=== PATIENT | female | born 2000 | race Caucasian/White ===

== ENCOUNTER → 2022-03-08 13:12 | Outpatient (BNVA) | payer OTHER, MEDICAID, SELFPAY | PROVIDERS: Visit Provider Specialist | DX: S83.005A Unspecified dislocation of left patella, initial encounter (principal); W18.49XA Other slipping, tripping and stumbling without falling, initial encounter; M25.562 Pain in left knee | CPT/HCPCS: 73560; 73565; 99203 ==

== ENCOUNTER 2025-09-25 23:07 | Emergency (ER) | payer MEDICAID, SELFPAY ==
--- OUTSIDE RECORDS SUMMARY | 2025-09-25 13:50 | XMS_ITS | Encounter Summary ---
Author Organization [facility] Address [address] [place] [address] Phone Care Team Providers Care Tools Administrator Name Role Phone Dc Oscar Primary Care Provider [phone] Reason for Referral * Imaging (Routine) - Pending Review Specialty Diagnoses / Procedures Referred By Willie dowd Referred To Contact Diagnoses S/P medial patellofemoral ligament reconstruction Procedures MR knee left wo IV contrast William Posada MD [address] [place] [address] Phone: tel: fax: [address] [address] Phone: tel: fax: Referral ID Status Reason Start Date Expiration Date V isits Requested Visits Authorized [id number] Pending Review 09/25/2025 09/25/2026 1 1 RY WORKER CONVEYOR LINE * Imaging (Routine) - Authorized Specialty Diagnoses / Procedures Referred By Willie dowd Referred To Contact Diagnoses Left knee pain, unspecified chronicity Procedures XR knee 3 views left William Posada MD [address] [place] [address] Phone: tel: fax: [place] [address] Phone: tel: fax: Referral ID Status Reason Start Date Expiration Date V isits Requested Visits Authorized [id number] Authorized 09/19/2025 09/19/2026 1 1 RY WORKER CONVEYOR LINE Reason for Visit * Reason Comments Follow-up Encounter Details Date Type Department Care Team (Late st Contact Info) Description 09/25/2025 1:50 PM BAKERY WORKER CONVEYOR LINE Office Visit [facility] [address] [place] [address] William Posada MD [address] [place] [address] S/P medial patellofemoral ligament reconstruction (Primary Dx); Chronic pain of left knee Social History Tobacco Use Types Packs/Day Years Used Date Smoking Tobacco: Never Smokeless Tobacco: Never Alcohol Use Standard Drinks/Week Comments Not Currently 0 (1 standard drink = 0.6 oz pur e alcohol) [facility] Utilities Answer Date Recorded In the past 12 months has [employer], gas, oil, or water [employer] threatened to shut off services in your home? No 03/10/2024 Humiliation, Afraid, Rape, and Kick questionnair e Answer Date Recorded Within the last year, have y ou been afraid of your partner or ex-partner? No 03/10/2024 Within the last year, have y ou been humiliated or emotionally abused in other ways by your partner or ex-partner? No Within the last year, have y ou been kicked, hit, slapped, or otherwise physically hurt by your partner or ex-partner? No 03/10/2024 Within the last year, have y ou been raped or forced to have any kind of sexual activity by your partner or ex-partner? No 03/10/2024 AUDIT-C Answer Date Recorded Q1: How often do you have a drink containing alc ohol? Monthly or less 04/09/2024 Q2: How many drinks containi ng alcohol do you have on a typical day when you are drinking? 1 or 2 04/09/2024 Q3: How often do you have si x or more drinks on one occasion? Never 04/09/2024 Overall Financial Resource Strain (CARDIA) Answe r Date Recorded How hard is it for you to pa y for the very basics like food, housing, medical care, and heating? Not hard at all 03/10/2024 PHQ-2 Answer Date Recorded Patient Health Questionnaire-2 Score 6 04/09/2024 Hunger Vital Sign Answer Date Recorded Within the past 12 months, y ou worried that your food would run out before you got the money to buy more. Never true 03/10/20 24 Within the past 12 months, t he food you bought just didn't last and you didn't have money to get more. Never true 03/10/2024 PRAPARE - Transportation Answer Date Re corded In the past 12 months, has l ack of transportation kept you from medical appointments or from getting medications? No 02/2024 In the past 12 months, has l ack of transportation kept you from meetings, work, or from getting things needed for daily living? No 03/10/2024 Housing Stability Vital Sign Answer Lopez e Recorded In the last 12 months, was t here a time when you were not able to pay the mortgage or rent on time? No 03/10/2024 In the last 12 months, how many places have you lived? 1 03/10/2024 In the last 12 months, was t here a time when you did not have a steady place to sleep or slept in a fci (including now)? No 03/10/2024 [facility] - Mental Health Answer Date Recorde d Little interest or pleasure in doing things Near ly every day 04/09/2024 Feeling down, depressed, or hopeless Nearly ever y day 04/09/2024 Feeling of Stress Not on file 04/09/2024 Comments No Sex and Gender Information Value Date Recorded Sex Assigned at Female 08/09/2024 10:49 PM CDT Legal Sex Female 3:25 PM CDT Gender Identity Transgender Male 08/09/2024 10:4 9 PM CDT Sexual Orientation Sanchez 08/09/2024 10 :49 PM CDT documented as of this encounter Last Filed Vital Signs Vital Sign Reading Time Taken Comments Blood Pressure 92/66 09/25/2025 1:50 PM BAKERY WORKER CONVEYOR LINE Pulse 93 09/25/2025 1:50 PM BAKERY WORKER CONVEYOR LINE Temperature - - Respiratory Rate 16 09/25/2025 1:50 PM BAKERY WORKER CONVEYOR LINE Oxygen Saturation 99% 09/25/2025 1:50 PM BAKERY WORKER CONVEYOR LINE Inhaled Oxygen Concentration - - Weight 71.2 kg (157 lb) 09/25/2025 1:50 PM BAKERY WORKER CONVEYOR LINE Height 154.9 cm (5' 1 ) 09/25/2025 1:50 PM BAKERY WORKER CONVEYOR LINE Body Mass Index 29.66 09/25/2025 1:50 PM BAKERY WORKER CONVEYOR LINE documented in this encounter Progress Notes * William Posada MD - 09/25/2025 1:50 PM CST CHIEF COMPLAINT: Chronic knee pain and patellar instability History of Present Illness The patient is a 25-year-old female with a history of patellar instability. Two years ago, she underwent medial patellofemoral ligament (MPFL) reconstruction due to recurrent patellar instability. 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 Initially, the patient experienced difficulties with postoperative physical therapy buteventually demonstrated a favorable response. Recently, she has reported episodes of patellar subluxation without complete dislocation, describing a persistent sensation of instability. PAST SURGICAL HISTORY: Medial patellofemoral ligament (MPFL) reconstruction SOCIAL HISTORY Previously worked at the local hospital, currently employed at [employer]. REVIEW OF SYSTEMS: Review of system is performed pertinent positives as documented in history of present illness. 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, left knee, initial encounter surgery scheduled 10/11/23 Kajal Anxiety panic attack Autism spectrum disorder Claustrophobia o2 mask are okay to use Depression Disease of thyroid gland hx of hyperthyroidism, partial thyroidectomy 2019 Hypermobility syndrome Left knee pain currently using knee immobilizer, cane and wheelchair Mitral valve prolapse Patellar instability of left knee surgery scheduled 10/11/23 Kajal PTSD (post-traumatic stress disorder) non-hositl triggers MEDICATIONS: Current Outpatient Medications on File Prior to Visit Medication Sig Dispense Refill albuterol (Proventil;Ventolin) 90 mcg/actuation inhaler Inhale 2 puffs every 6 (six) hours if needed for wheezing. hydrOXYzine HCL (Atarax) 25 mg tablet Take 25 mg by mouth every 8 (eight) hours if needed (panic attack). Takes for panic attack LORazepam (Ativan) 0.5 mg tablet Take 0.5 mg by mouth 1 (one) time each day if needed for anxiety. levocetirizine (Xyzal) 5 mg tablet Take 5 mg by mouth 1 (one) time each day. (Patient not taking: Reported on 09/25/2025) mirtazapine (Remeron) 15 mg tablet Take 15 mg by mouth 1 (one) time each day. (Patient not taking: Reported on 09/25/2025) sertraline (Zoloft) 25 mg tablet Take 25 mg by mouth 1 (one) time each day. (Patient not taking: Reported on 09/25/2025) sertraline (Zoloft) 50 mg tablet Take 50 mg by mouth 1 (one) time each day. (Patient not taking: Reported on 09/25/2025) No current facility-administered medications on file prior to visit. PHYSICAL EXAM: Left knee: Postsurgical scars are stable. There is no effusion to the knee. Range of motion of the knee from 0 to 120 degrees with no pain. Lateral patellar apprehension. Mild tenderness of left medial patella. Motor and sensory is otherwise grossly intact. IMAGING: I reviewed the radiographs findings of the patient's knee. The radiographic images are also viewed and independently interpreted by me. There are no fractures or dislocation. Joint spaces preserved. Alignment is normal. There is a small calcific ossicle to the medial patellar facet. Assessment & Plan This is a 25-year-old female who presents for evaluation of her knee due to a sense of patella subluxation/sliding. Her history and clinical exam is concerning for concern for recurrent patellar stability. X-ray shows small bony fragment at medial patella facet, possibly indicating disrupted MPFL repair. Recommendation: - Ordered MRI to evaluate MPFL repair and patellar stability - Discussed potential need for further surgical intervention based on MRI findings. Patient likely the patient may need referral to a tertiary institution versus go ahead and continue treatment once she moves to [place]. - Advised to avoid activities exacerbating symptoms - No brace per patient preference Follow-up - In about a month after MRI Records of evaluation and treatment provided to the patient prior to this visit for the condition were reviewed during this visit. Diagnostic tests were also reviewed, viewed where possible, and independently interpreted by by me. Please excuse any grammatical errors that may be as a result of dictation software which has been utilized for this note. RY WORKER CONVEYOR LINE documented in this encounter Plan of Treatment Upcoming Encounters Date Type Department Care Team (Late st Contact Info) Description 10/23/2025 1:50 PM BAKERY WORKER CONVEYOR LINE Office Visit [facility] [address] [place] [address] William Posada MD [address] [id number] Scheduled Orders Name Type Priority Associated Diagnoses Orde r Schedule XR knee 3 views left Imaging Routine Chronic pain of left knee Expected: 09/19/2025, Expires: 09/19/2026 MR knee left wo IV contrast Imaging Routine S/P medial patellofemoral ligament reconstruction Expected: 09/25/2025 (Approximate), Expires: 09/25/2026 documented as of this encounter Visit Diagnoses Diagnosis S/P medial patellofemoral ligament reconstruction- Primary Chronic pain of left knee documented in this encounter Care Teams Tools Administrator Relationship Specialty Start Date End Date Dc Oscar [facility] [address] [place] [address] PCP - General 08/19/23 documented as of this encounter
[2025-09-25 23:08] VITALS: BP 116/80; PULSE 87; RESP 16; TEMP 36.8; O2SAT 100; BMI 29.4
--- NOTE | 2025-09-25 23:14 | ECG_ITS ---
[facility] Date: 2025-09-25 Pat Name: Stephan Wilde Department: Room: Gender: Female Surveying Or Spatial Science Technician: : 2000 Requested By: Joseph De La Cruz Order Number: [id number] Edmond MD: Karen Melgar M.D. Measurements Intervals [place] Rate: 80 P: 40 HI: 202 QRS: 32 QRSD: 115 T: 46 QT: 362 QTc: 420 Interpretive Statements SINUS RHYTHM MODERATE INTRAVENTRICULAR CONDUCTION DELAY [110+ ms QRS DURATION] No previous ECG available for comparison Electronically Signed On 09-25-2025 23:56:49 LAP CUTTER TRUER OPERATOR by Karen Melgar M.D. [email or web address] [id number]
--- OUTSIDE RECORDS SUMMARY | 2025-09-25 23:15 | XMS_ITS | Clinical Summary ---
Author Organization [facility] Main [facility] s Address [address] [place] [address] Care Team Providers Care Jazz Singer Name Role Phone EsterDc alfaro Primary Care Provider [phone] Allergies Active Allergy Reactions Criticality Noted Date Comments Adhesive Tape-Silicones Rash Medium 04/09/2024 Medications hydrOXYzine (ATARAX) 25 mg tablet TAKE 1 TO 4 TABLETS BY MOUTH EVERY 8 HOURS NEEDED FOR ACUTE ANXIETY AND PANIC Active LORazepam (ATIVAN) 0.5 mg tablet Take 1 tablet (0.5 mg total) by mouth daily as needed 02/28/2024 Active sertraline (ZOLOFT) 25 mg tablet Take 1 tablet (25 mg total) by mouth daily Active loratadine (CLARITIN) 5 mg chewable tablet Take 1 tablet (5 mg total) by mouth daily Active Active Problems Problem Noted Date Diagnosed Date Recurrent syncope 07/11/2024 Syncope and collapse 05/25/2024 Surgical History Surgery Date Site/Laterality Comments THYROIDECTOMY, PARTIAL Medical History Medical History Date Comments Anxiety Depression PTSD (post-traumatic stress disorder) Social History Tobacco Use Types Packs/Day Years Used Date Smoking Tobacco: Never Smokeless Tobacco: Never Tobacco Cessation:Counseling Given: Not Answered AUDIT-C Answer Date Recorded Q1: How often do you have a drink containing alc ohol? Monthly or less 08/02/2024 Q2: How many drinks containi ng alcohol do you have on a typical day when you are drinking? 1 or 2 08/02/2024 Q3: How often do you have si x or more drinks on one occasion? Never 08/02/2024 Personal Safety Answer Date Recorded Have you ever been in or are you currently in a harmful physical or emotional relationship or is someone making you feel afraid or unsafe? Denies 08/02/2024 Comments No Sex and Gender Information Value Date Recorded Sex Assigned at Not on file Legal Sex Female 1:17 PM SUPERINTENDENT [employer]PER[employer] Gender Identity Not on file Sexual Orientation Not on file Last Filed Vital Signs Vital Sign Reading Time Taken Comments Blood Pressure 118/81 08/02/2024 6:20 PM CDT Pulse 105 08/02/2024 6:20 PM CDT Temperature 36.2 C (97.2 F) 02/09/2023 4:23 PM CDT Respiratory Rate 20 08/02/2024 6:20 PM CDT Oxygen Saturation 98% 08/02/2024 6:20 PM CDT Inhaled Oxygen Concentration - - Weight 68 kg (150 lb) 05/25/2024 3:26 PM CDT Height 157.5 cm (5' 2 ) 05/25/2024 3:26 PM CDT Body Mass Index 27.44 05/25/2024 3:26 PM CDT Plan of Treatment Health Maintenance Due Date Last Done Comments Cervical Cancer Screening 2002 Depression Screening 2002 Hepatitis C Screening 2002 DTaP/Tdap/Td Vaccine (1 - Tdap) 2013 Varicella Vaccines (1 of 2 - 13+ 2-dose series) 2015 HPV Vaccines (1 - 3-dose series) 2017 Meningococcal B Vaccine (1 o f 2 - Standard) 2018 Hepatitis B Screening 2020 Regular Well Visit/Exam 18-64 2020 Covid-19 Vaccine (4 - 2024-2 6 season) 2025 06/01/2022, 01/18/2022, 11/26/2021 Influenza Vaccine (#1) 2025 2, 11/24/2021 Pneumococcal vaccine <65 Aged Out No longer eligible based on patient's age to complete this topic Insurance [facility] Care Teams Jazz Singer Relationship Specialty Start Date End Date Dc Oscar DO [address] [place] [id number] PCP - General Family Medicine 06/23/24
--- OUTSIDE RECORDS SUMMARY | 2025-09-25 23:15 | XMS_ITS | Encounter Summary ---
Author Organization [facility] Address [address] [address] Phone Care Team Providers Care Substance Addiction Coordinator Name Role Phone Dc Oscar Primary Care Provider [phone] Encounter Details Date Type Department Care Team (Late st Contact Info) Description 11/01/2023 Orders Only [facility] [address] [place] [id number] Beverly Heath LPN [address] [address] S/P medial patellofemoral ligament reconstruction (Primary Dx); Chronic pain of left knee Social History Tobacco Use Types Packs/Day Years Used Date Smoking Tobacco: Never Smokeless Tobacco: Never Alcohol Use Standard Drinks/Week Comments Never 0 (1 standard drink = 0.6 oz pur e alcohol) PHQ-2 Answer Date Recorded Patient Health Questionnaire-2 Score 0 09/21/2023 Comments No Sex and Gender Information Value Date Recorded Sex Assigned at Female 08/09/2024 10:49 PM CDT Legal Sex Female 3:25 PM CDT Gender Identity Transgender Male 08/09/2024 10:4 9 PM CDT Sexual Orientation Sanchez 08/09/2024 10 :49 PM CDT documented as of this encounter Plan of Treatment Upcoming Encounters Date Type Department Care Team (Late st Contact Info) Description 10/23/2025 1:50 PM PREDATORY GAME HUNTER Office Visit [facility] [address] [place] [phone] William Posada MD [address] [address] documented as of this encounter Visit Diagnoses Diagnosis S/P medial patellofemoral ligament reconstruction- Primary Chronic pain of left knee documented in this encounter Care Teams Substance Addiction Coordinator Relationship Specialty Start Date End Date Dc Oscar [address] [address] PCP - General 08/19/23 documented as of this encounter
--- OUTSIDE RECORDS SUMMARY | 2025-09-25 23:16 | XMS_ITS | Encounter Summary ---
Author Organization [facility] Address [address] [place] [address] Phone Care Team Providers Care Fairground Operator Name Role Phone Dc Oscar Primary Care Provider [phone] Reason for Visit * Reason Onset Date Comments SY- Xrays 09/19/2025 Encounter Details Date Type Department Care Team (Late st Contact Info) Description 09/19/2025 Telephone [facility] [address] [place] [address] William Posada MD [address] [address] SY- Xrays Social History Tobacco Use Types Packs/Day Years Used Date Smoking Tobacco: Never Smokeless Tobacco: Never Alcohol Use Standard Drinks/Week Comments Not Currently 0 (1 standard drink = 0.6 oz pur e alcohol) [facility] Utilities Answer Date Recorded In the past 12 months has [employer], gas, oil, or water [employer] threatened to shut off services in your [...] place to sleep or slept in a group home (including now)? No 03/10/2024 [facility] - Mental Health Answer Date Recorde d [...] PM CDT documented as of this encounter Miscellaneous Notes * Telephone Encounter - Latricia Tinocon - 09/24/2025 1:15 PM CST Called and left voicemail BOARD CUTTER * Telephone Encounter - Latricia Tinocon - 09/23/2025 3:56 PM CST Called someone answered, I started to state my name and what office I'm from, then they hung up. Could not leave voicemail BOARD CUTTER * Telephone Encounter - Latricia Shawn - 09/19/2025 12:58 PM CST Called and left voicemail to have patient to get xrays before 09/25 appointment. BOARD CUTTER documented in this encounter Plan of Treatment Upcoming Encounters Date Type Department Care Team (Late st Contact Info) Description 10/23/2025 1:50 PM CARDBOARD CUTTER Office Visit [facility] [address] [place] [address] William Posada MD [address] [place] [address] documented as of this encounter Visit Diagnoses Not on filedocumented in this encounter Care Teams Fairground Operator Relationship Specialty Start Date End Date Dc Oscar [facility] [address] [facility] [place] [address] PCP - General 08/19/23 documented as of this encounter
--- OUTSIDE RECORDS SUMMARY | 2025-09-25 23:16 | XMS_ITS | Clinical Summary ---
Author Organization [facility] 1 [address] [facility] Address [address] [place] [address] Phone Care Team Providers Care Picking Machine Operator Name Role Phone Unavailable Primary Care Provider Unavailabl e Allergies No known active allergies Medications hydrOXYzine HCL (ATARAX) 10 mg tablet Take 10 mg by mouth 3 times daily as needed for Itching. Active levocetirizine (XYZAL) 5 mg tablet Take 5 mg by mouth daily. 4 Active LORazepam (ATIVAN) 0.5 mg tablet Take 0.5 mg by mouth. 4 Active mirtazapine (REMERON) 15 mg tablet Take 15 mg by mouth daily. 4 Active sertraline (ZOLOFT) 25 mg tablet Take 25 mg by mouth daily. 4 Active albuterol sulfate HFA 90 mcg/actuation aerosol inhaler Take 2 Puffs by inhalation every 6 hours as needed for Shortness of Breath. Active Active Problems Problem Noted Date Diagnosed Date Suicide ideation 11/13/2024 History of mitral valve prolapse 03/09/2024 Chest pain 03/09/2024 Encounters Date Type Department Care Team Description 09/24/2025 External Device Data STL ABSTRACTION Provider, Abstract 09/10/2025 External Device Data STL ABSTRACTION Provider, Abstract 09/10/2025 External Device Data STL ABSTRACTION Provider, Abstract 08/28/2025 External Device Data STL ABSTRACTION Provider, Abstract 07/23/2025 External Device Data STL ABSTRACTION Provider, Abstract 07/09/2025 External Device Data STL ABSTRACTION Provider, Abstract 06/25/2025 External Device Data STL ABSTRACTION Provider, Abstract from Last 3 Months Social History Tobacco Use Types Packs/Day Years Used Date Smoking Tobacco: Never Smokeless Tobacco: Never Tobacco Cessation:Counseling Given: Not Answered Alcohol Use Standard Drinks/Week Comments Never 0 (1 standard drink = 0.6 oz pur e alcohol) Feeling Safe Answer Date Recorded Are you in a relationship wi th someone who hurts you emotionally and/or physically? No 11/13/2024 Comments No Sex and Gender Information Value Date Recorded Sex Assigned at Not on file Legal Sex Female 1:49 PM PRESS CLIPPINGS CUTTER AND PASTER Gender Identity Not on file Sexual Orientation Not on file Last Filed Vital Signs Vital Sign Reading Time Taken Comments Blood Pressure 121/78 11/13/2024 1:00 PM PRESS CLIPPINGS CUTTER AND PASTER Pulse 87 03/09/2024 6:30 PM CDT Temperature 36.3 C (97.3 F) 11/13/2024 6:22 AM PRESS CLIPPINGS CUTTER AND PASTER Respiratory Rate 16 11/13/2024 1:00 PM PRESS CLIPPINGS CUTTER AND PASTER Oxygen Saturation 100% 11/13/2024 1:00 PM PRESS CLIPPINGS CUTTER AND PASTER Inhaled Oxygen Concentration - - Weight 71.4 kg (157 lb 6.4 oz) 11/13/2024 12:07 AM PRESS CLIPPINGS CUTTER AND PASTER Height 154.9 cm (5' 1 ) 11/13/2024 12:07 AM PRESS CLIPPINGS CUTTER AND PASTER Body Mass Index 29.74 11/13/2024 12:07 AM PRESS CLIPPINGS CUTTER AND PASTER Plan of Treatment Upcoming Encounters Date Type Department Care Team (Late st Contact Info) Description 10/09/2025 3:00 PM PRESS CLIPPINGS CUTTER AND PASTER Office Visit [facility] [address] [phone] Shanique Brown FNP [address] [place] [phone] Health Maintenance Due Date Last Done Comments CHLAMYDIA SCREENING (ANNUAL) 11-24 YEARS 2013 HPV VACCINES (1 - 3-dose series) 2017 DTAP/TDAP/TD VACCINES (1 - Tdap) 2021 HEPATITIS B VACCINES (1 of 3 - 19+ 3-dose series) 2021 CERVICAL CANCER SCREENING 2023 HPV/Cotest (21-29) 2023 PAP SMEAR 2023 INFLUENZA VACCINE (#1) 2025 COVID-19 Vaccine (2024-2 6 season) 2025 06/01/2022, 01/18/2022, 11/26/2021 Insurance [facility] [id number] [employer]
--- OUTSIDE RECORDS SUMMARY | 2025-09-25 23:16 | XMS_ITS | Encounter Summary ---
Author Organization [facility] Address [address] [place] [address] Care Team Providers Care Receiving Team Member Name Role Phone Unavailable Primary Care Provider Unavailabl e Encounter Details Date Type Department Care Team (Late st Contact Info) Description 09/24/2025 External Device Data STL ABSTRACTION Provider, Abstract NO ADDRESS ON FILE Social History Tobacco Use Types Packs/Day Years [...] on file Legal Sex Female 1:49 PM COMMUNICATIONS ASSISTANT Gender Identity Not on file Sexual Orientation Not on file documented as of this encounter Plan of Treatment Upcoming Encounters Date Type Department Care Team (Late st Contact Info) Description 10/09/2025 3:00 PM COMMUNICATIONS ASSISTANT Office Visit [facility] [address] [place] [address] Shanique Brown FNP [address] [place] [address] [address] [place] [phone] documented as of this encounter Visit Diagnoses Not on filedocumented in this encounter
--- OUTSIDE RECORDS SUMMARY | 2025-09-25 23:16 | XMS_ITS | Clinical Summary ---
Author Organization [facility] Address [address] [place] [address] Phone Care Team Providers Care Heart Doctor Name Role Phone Dc Oscar Primary Care Provider [phone] Allergies Active Allergy Reactions Criticality Noted Date Comments Adhesive Tape-Silicones Rash Medium 04/09/2024 Medications hydrOXYzine HCL (Atarax) 25 mg tablet Take 25 mg by mouth every 8 (eight) hours if needed (panic attack). Takes for panic attack 07/27/2023 Active LORazepam (Ativan) 0.5 mg tablet Take 0.5 mg by mouth 1 (one) time each day if needed for anxiety. 02/28/2024 Active sertraline (Zoloft) 25 mg tablet Take 25 mg by mouth 1 (one) time each day. 08/02/2024 Active levocetirizine (Xyzal) 5 mg tablet Take 5 mg by mouth 1 (one) time each day. 07/11/2024 Active mirtazapine (Remeron) 15 mg tablet Take 15 mg by mouth 1 (one) time each day. 07/26/2024 Active sertraline (Zoloft) 50 mg tablet Take 50 mg by mouth 1 (one) time each day. 07/26/2024 Active albuterol (Proventil;Fabiola luis) 90 mcg/actuation inhaler Inhale 2 puffs every 6 (six) hours if needed for wheezing. Active Active Problems Problem Noted Date Diagnosed Date Palpitations 06/10/2024 Dizziness, nonspecific 06/10/2024 Benign joint hypermobility 06/10/2024 Family history of aneurysm 06/10/2024 Tachycardia 06/10/2024 Syncope and collapse 04/09/2024 Tilt table evaluation 04/09/2024 Chest pain 03/09/2024 Anterior subluxation of prox imal end of tibia, left knee, initial encounter 09/22/2023 Patellar instability of left knee 09/22/2023 Left knee pain 09/22/2023 Encounters Date Type Department Care Team Description 09/25/2025 1:50 PM ASSEMBLY CLEANER Office Visit [facility] [address] [place] [id number] William Posada MD S/P medial patellofemoral ligament reconstruction (Primary Dx); Chronic pain of left knee 09/19/2025 Telephone ORTHOPEDICS CLINIC MEDICAL OFFICE BUILDING [address] [place] [phone] William Posada MD SY- Xrays from Last 3 Months Family History Medical History Relation Comments Diabetes Maternal Grandmother Cancer Neg Hx Hypertension Neg Hx Stroke Neg Hx Relation Status Comments Maternal Grandmother Mother Social History Tobacco Use Types Packs/Day Years Used Date Smoking Tobacco: Never Smokeless Tobacco: Never Tobacco Cessation:Counseling Given: Not Answered Alcohol Use Standard Drinks/Week Comments Not Currently 0 (1 standard drink = 0.6 oz pur e alcohol) [facility] Utilities Answer Date Recorded In the past 12 months has e [employer], gas, oil, or water [employer] threatened to shut off services in your [...] place to sleep or slept in a halfway (including now)? No 03/10/2024 [facility] - Mental Health Answer Date Recorde [...] Orientation Sanchez 08/09/2024 10 :49 PM CDT Last Filed Vital Signs Vital Sign Reading Time Taken Comments Blood Pressure 92/66 09/25/2025 1:50 PM ASSEMBLY CLEANER Pulse 93 09/25/2025 1:50 PM ASSEMBLY CLEANER Temperature 37 C (98.6 F) 08/10/2024 12:35 AM CDT Respiratory Rate 16 09/25/2025 1:50 PM ASSEMBLY CLEANER Oxygen Saturation 99% 09/25/2025 1:50 PM ASSEMBLY CLEANER Inhaled Oxygen Concentration - - Weight 71.2 kg (157 lb) 09/25/2025 1:50 PM ASSEMBLY CLEANER Height 154.9 cm (5' 1 ) 09/25/2025 1:50 PM ASSEMBLY CLEANER Body Mass Index 29.66 09/25/2025 1:50 PM ASSEMBLY CLEANER Plan of Treatment Upcoming Encounters Date Type Department Care Team (Late st Contact Info) Description 10/23/2025 1:50 PM ASSEMBLY CLEANER Office Visit [facility] [place], [place] [id number] William Posada MD [address] [address] Health Maintenance Due Date Last Done Comments MMR Vaccines (1 of 1 - Standard series) 2003 DTaP,Tdap,and Td Vaccines (1 - Tdap) 2009 Varicella Vaccines (1 of 2 - 13+ 2-dose series) 2015 HPV Vaccines (1 - 3-dose series) 2017 Meningococcal B Vaccine (1 o f 2 - Standard) 2018 Depression Screening 2020 Social Drivers of Health (SDoH) 2020 Hepatitis B Vaccines (1 of 3 - 19+ 3-dose series) 2021 Pap Smear 2023 COVID-19 Vaccine (2 - 2024-2 6 season) 2025 06/11/2024 Influenza Vaccine (#1) 2025 2, 11/24/2021 Lipid Panel 03/09/2029 03/09/2024 Zoster Vaccines (1 of 2) 2052 RSV Vaccines (1 - 1-dose 75+ series) 2077 HIB Vaccines Aged Out No longer eligi ble based on patient's age to complete this topic Hepatitis A Vaccines Aged Out No long er eligible based on patient's age to complete this topic IPV Vaccines Aged Out No longer eligi ble based on patient's age to complete this topic Meningococcal Vaccine Aged Out No suzie rik eligible based on patient's age to complete this topic Pneumococcal Vaccines Aged Out No suzie rik eligible based on patient's age to complete this topic Rotavirus Vaccines Aged Out No longer eligible based on patient's age to complete this topic Medical Devices Implanted Type Area Produce Wrapper Device Identifier Shelf Expiration Date Model / Serial / Lot Dbl Strand Semi-T - [id number] Implanted:Qty : 1 on 10/11/2023 by William Posada MD at [facility] Consignment Products Implant Left: Knee STRE [id number] 05/14/2028 [id number] / / [id number] Description:PURCHASED ON PO# [id number] Yuma Qfix 1.8 Mini Suture - [id number] Implanted:Qty : 1 on 10/11/2023 by William Posada MD at [facility] Implant Left: Knee SMINE 06/17/2026 [id number] / / [id number] Description:PURCHASED ON PO# [id number] [employer]uma Qfix 1.8 Mini Suture - [id number] Implanted:Qty : 1 on 10/11/2023 by William Posada MD at [facility] Implant Left: Knee SMINE 12/10/2025 [id number] / / [id number] Description:PURCHASED ON PO# [id number] Screw Biosure [place] 7mm X 20mm - [id number] Implanted:Qty : 1 on 10/11/2023 by William Posada MD at [facility] Implant Left: Knee SMINO 09/21/2024 [id number] / / [id number] Description:PURCHASED ON PO# [id number] Procedures Procedure Name Priority Date/Time Associated Diagnosis Comments LIPID PANEL Pending Discharge 03/09/2024 9:2 4 PM CDT from Last 3 Months or Most Recently Relevant to Health Maintenance Results * (ABNORMAL) Lipid Panel (03/09/2024 9:24 PM CDT) Cholesterol, Total 191 0 - 200 mg/dL LAB CHEMISTRY METHOD 03/10/2024 5:57 AM CDT [facility] Comment: NCEP guidelines: Adults (older than 19 yrs) Desirable: Less than 200 mg/dL Borderline-High: 200 - 239 mg/dL High: Greater than or equal to 240 mg/dL Triglycerides 154(H) 0 - 150 mg/dL LAB CHEMISTRY METHOD 03/10/2024 5:57 AM CDT [facility] Comment: NCEP guidelines: Normal: 10 - 150 mg/dL Borderline-High: 150 - 199 mg/dL High: 200 - 499 mg/dL Very High: Greater than 500 mg/dL High-Density Lipoprotein 42 40 - 60 mg/dL LAB CHEMISTRY METHOD 03/10/2024 5:57 AM CDT [facility] Comment: NCEP guidelines: Low: Less than 40 mg/dL Normal: 40 - 60 mg/dL High: Greater than 60 mg/dL LDL 118 0 - 130 mg/dL LAB CHEMISTRY METHOD 03/10/2024 5:57 AM CDT [facility] Blood Venous blood specimen / Unknown Venipuncture / Unknown 03/09/2024 9:24 PM CDT 03/09/2024 9:52 PM CDT Naila Cummins MD LAB BLOOD ORDERABLES Final Result Performing Organization Address [facility]/State/[facility] Co de Phone Number [facility] [address] [address] from Last 3 Months or Most Recently Relevant to Health Maintenance Insurance [facility] MEDICAID Advance Directives For more information, please contact: [phone] (7:30 AM - 5PM [facility]/[place], 7 days a week) * Full Code (Latest Code Status on File) Date Activated Date Inactivated Comments 03/09/2024 8:54 PM 03/10/2024 6:36 PM * Full Code Date Activated Date Inactivated Comments 10/11/2023 10:05 AM 10/11/2023 6:48 PM Care Teams Heart Doctor Relationship Specialty Start Date End Date Dc Oscar [facility], [address] [place], [place] [id number] PCP - General 08/19/23
--- OUTSIDE RECORDS SUMMARY | 2025-09-25 23:17 | XMS_ITS | Encounter Summary ---
Author Organization [facility] Address [address] [place] [address] Phone Care Team Providers Care Rotary Envelope Machine Operator Name Role Phone Dc Oscar Primary Care Provider [phone] Reason for Visit * Reason Comments Med Change Request Encounter Details Date Type Department Care Team (Late st Contact Info) Description 03/12/2024 Refill UROLOGY CLINIC MEDICAL OFFICE BUILDING [address] [phone] Patrick Stewart MD [address] [phone] Urge incontinence Social History Tobacco Use Types Packs/Day Years Used Date Smoking Tobacco: Never Smokeless Tobacco: Never Alcohol Use Standard Drinks/Week Comments Never 0 (1 standard drink = 0.6 oz pur e alcohol) [facility] Utilities Answer Date Recorded In the past 12 months has [facility] [employer], oil, or water [employer] threatened to shut off services in your [...] often do you have a drink containing alcohol? Never 03/12/2024 Q2: How many drinks containi ng alcohol do you have on a typical day when you are drinking? Patient does not drink Q3: How often do you have si x or more drinks on one occasion? Never 03/12/2024 Overall Financial Resource Strain (CARDIA) Answe r Date Recorded How hard is it for you to pa y for the very basics like food, housing, medical care, and heating? Not hard at all 03/10/2024 PHQ-2 Answer Date Recorded Patient Health Questionnaire-2 Score 0 03/12/2024 Hunger Vital Sign Answer Date Recorded Within [...] place to sleep or slept in a retirement (including now)? No 03/10/2024 Comments No Sex and Gender Information Value Date Recorded Sex Assigned at Female 08/09/2024 10:49 PM CDT Legal Sex Female 3:25 PM CDT Gender Identity Transgender Male 08/09/2024 10:4 9 PM CDT Sexual Orientation Sanchez 08/09/2024 10 :49 PM CDT documented as of this encounter Functional Status * AUDIT-C Score Answer Date of Assessment Author 0 03/12/2024 2:23 PM CDT Galo Moreno LPN-IV * Question Answer Date of Assessment Author Q1: How often do you have a drink containing alcohol? Never 03/12/2024 2:23 PM CDT Evy Moreno LPN-IV Q2: How many drinks containing alcohol do you have on a typical day when you are drinking? Patient does not drink 03/12/2024 2:23 PM CDT Evy Moreno LPN-IV Q3: How often do you have six or more drinks on one occasion? Never 03/12/2024 2:23 PM CDT Evy Moreno LPN-IV * Over the past 2 weeks, how often have you been bothered by any of the following problems? Question Answer Date of Assessment Author Little interest or pleasure in doing things Not at all 03/12/2024 2:19 PM CDT Evy Moreno LPN-IV Feeling down, depressed, or hopeless Not at all 03/12/2024 2:19 PM CDT Evy Moreno LPN-IV Patient Health Questionnaire-2 Score 0 03/12/2024 2:19 PM CDT Valerio Moreno LPN-IV documented as of this encounter Plan of Treatment Upcoming Encounters Date Type Department Care Team (Late st Contact Info) Description 10/23/2025 1:50 PM CLINICAL BUSINESS ANALYST Office [facility] [address] [place] [address] William Posada MD [address] [address] documented as of this encounter Visit Diagnoses Diagnosis Urge incontinence documented in this encounter Care Teams Rotary Envelope Machine Operator Relationship Specialty Start Date End Date Dc Oscar [facility] [address] [facility] [place] [address] PCP - General 08/19/23 documented as of this encounter
--- NOTE | 2025-09-25 23:18 | XRR_ITS ---
PROCEDURE INFORMATION: Exam: XR Chest Exam date and time: 09/25/2025 11:19 PM Age: 25 years old Clinical indication: Pain; Angina pectoris; Additional info: Cp TECHNIQUE: Imaging protocol: Radiologic exam of the chest. Views: 1 view. COMPARISON: No relevant prior studies available. FINDINGS: Lungs: Unremarkable. No consolidation. Pleural spaces: Unremarkable. No pleural effusion. No pneumothorax. Heart/Mediastinum: Unremarkable. No cardiomegaly. Bones/joints: Unremarkable. XR/XR chest 1V portable [id number] IMPRESSION: No acute findings.
[2025-09-25 23:46] VITALS: BP 138/98; PULSE 91; O2SAT 98
--- NOTE | 2025-09-25 23:54 | ED_ITS ---
HPI - Chest Pain 2 General: Chief Complaint: Chest Pain Stated Complaint: Chest Pain,Got hit in the head Time Seen by Provider: 09/25/25 23:18 History of Present Illness: Patient is a 25F with a history of mitral valve prolapse and asthma presents with worsening sharp upper chest pain that first onset a week ago and has been intermittent since, seemingly worsening tonight. No radiation to her arms, jaw, back, not associated with shortness of breath, vomiting, diaphoresis, not worsened with exertion, but seems to be positional. Has had a pain similar to this many times before with negative ED evaluations and seemingly attributable to her MVP. She is on no medications for that. She denies any recent fevers, chills, diaphoresis, NVD, abdominal pain, urinary symptoms. She last had an appointment with a facility supervisor 2 months ago and is on no medications for her MVP, she states she does not know the severity of it but knowingly has not had any complications from this. 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 She has tried ibuprofen and acetaminophen for pain without relief and prefers to avoid stronger analgesics. No history of blood clots, no recent immobilization, no leg pain, not on OCPs. Related Data Home Medications ?Medication ?Instructions ?Recorded ?Confirmed hydroxyzine HCl 25 mg tablet 25 mg PO BID PRN 04/19/24 04/18/25 lorazepam 0.5 mg tablet 0.5 mg PO DAILY PRN 04/19/24 04/18/25 levocetirizine 5 mg tablet 5 mg PO DAILY 07/26/2404/07 albuterol sulfate 90 mcg/actuation 1 inh inhalation QI D 04/18/25 04/18/25 aerosol inhaler (Ventolin HFA) Previous Rx's ?Medication ?Instructions ?Recorded mirtazapine 15 mg tablet 15 mg PO DAILY #30 tabs 07/08 07/31 sertraline 50 mg tablet 50 mg PO DAILY 30 days #30 t abs 07/26/24 azithromycin 500 mg tablet See Rx Instructions PO .COM PLEX #3 09/26/25 tabs Allergies Allergy/AdvReac Type Severity Reaction Status Date / Time adhesive Allergy ALGY-Rash Verified 09/25/25 23:18 Review of Systems 2 General: Reports: 10 or more systems reviewed and unremarkable except in HPI and below Card: Reports: chest pain PFSH ED 2 PFSH: Medical History (Updated 09/26/25 @ 02:03 by Janes Lopes DO) Anxiety Psychiatric care Family History Mother Diabetes Social History (Updated 04/18/25 @ 10:04 by Alka Morejon LPN) Smoking and tobacco/nicotine status: current some day tobacco/nicotine user e- cigarettes Second hand smoke exposure: No Alcohol intake: never Substance/Drug Use: never Adopted: Yes Caregiver/support person: Yes Lives independently: No Household members: family Housing: House Marital status: Single Number of children: 0 Highest education level completed: High School Graduate service: No Current occupational status: employed 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 Normal sinus rhythm with click at left lower sternal border, no leg swelling, 2+ pulses throughout, good cap refill. Breathing comfortably on room air, saturating well, clear bilateral breath sounds, able to speak in full sentences without getting short of breath, no signs of respiratory distress. Abdomen soft, nontender, nondistended, bowel sounds intact. GCS 15. Course 2 Vital Signs: Vital signs: Vital Signs Temperature 98.3 F 09/25/25 23:08 Pulse Rate 75 09/26/25 02:07 Respiratory Rate 16 09/25/25 23:08 Blood Pressure 107/69 09/26/25 02:07 Pulse Oximetry 99 09/26/25 02:07 Oxygen Delivery Me thod Room Air 09/26/25 01:30 MDM - Chest Pain Medical Decision Making -ddx: Mitral valve prolapse related pain, ACS, dysrhythmia, URI, pneumonia, pericarditis, myocarditis, pneumothorax, costochondritis, pleurisy - Patient overall well-appearing, with history of MVP, has had a week of intermittent sharp upper diffuse chest pain with no radiation, not exertional, low cardiac risk factors, heart score of 1, has been alternating Tylenol and ibuprofen to mild relief, denies wanting any stronger medications at this time, had a last cardiology appointment 2 months ago, is on no medications for her MVP and seemingly has had no complications from this. Will start with cardiac evaluation, chest x-ray and EKG and reassess, denying needing any medication at this time. - Patient with reassuring ED evaluation, EKG normal sinus rhythm with no interval prolongation, no ST changes, initial troponin less than 4, labs with no severe electrolyte abnormality, no BENJI, no evidence of endorgan damage. Did have mild leukocytosis with a possible brewing opacity in her right lower lobe and with her history of asthma, discharged with watchful wait antibiotics with Z-Julius for if she develops worsening infectious/respiratory symptoms over the next 24 to 48 hours, patient with no episodes of chest pain in the ED, agreeable with plan of care, work note provided, discharged in stable condition with strict return precautions given. Lab Data 09/26/25 01:00 09/26/25 01:00 Radiology Impressions Chest X-Ray 09/25/25 23:18 IMPRESSION: No acute findings. Laboratory Results WBC 11.99 10^3/uL (3.29-11.43) H 09/26/25 01:00 RBC 4.88 10^6/uL (3.85-5.65) 09/26/25 01:00 Hgb 13.80 g/dL (11.27-16.99) 09/26/25 01:00 Hct 42.4 % (36-47) 09/26/25 01:00 MCV 86.9 fl (85-98) 09/26/25 01:00 MCH 28.3 pg (27-33) 09/26/25 01:00 MCHC 32.5 g/dL (30-55) 09/26/25 01:00 RDW 13.1 % (12.1-15.1) 09/26/25 01:00 Plt Count 394 10^3/cmm (157-399) 09/26/25 01:00 MPV 9.5 fL (7.4-10.4) 09/26/25 01:00 Neut % (Auto) 66.6 % 09/26/25 01:00 Lymph % (Auto) 22.9 % 09/26/25 01:00 Wallace % (Auto) 5.5 % 09/26/25 01:00 Eos % (Auto) 3.3 % 09/26/25 01:00 Baso % (Auto) 0.9 % 09/26/25 01:00 Neut # (Auto) 7.99 10^3/uL (1.8-7.7) H 09/26/25 01:00 Lymph # (Auto) 2.7 10^3/uL (0.8-4.8) 09/26/25 01:00 Wallace # (Auto) 0.7 10^3/uL (0.2-0.9) 09/26/25 01:00 Eos # (Auto) 0.4 10^3/uL (0.0-0.8) 09/26/25 01:00 Baso # (Auto) 0.1 10^3/uL (0.0-0.1) 09/26/25 01:00 Nucleated RBC % (auto) 0 % 09/26/25 01:00 Nucleated RBCs # 0.0 /100WBC 09/26/25 01:00 Sodium 140 mmol/L (136-145) 09/26/25 01:00 Potassium 4.4 mmol/L (3.5-5.1) 09/26/25 01:00 Chloride 105 mmol/L (98-107) 09/26/25 01:00 Carbon Dioxide 23 mmol/L (22-29) 09/26/25 01:00 Anion Gap 16.4 (5-19) 09/26/25 01:00 BUN 14 mg/dL (6-20) 09/26/25 01:00 Creatinine 0.7 mg/dL (0.5-0.9) 09/26/25 01:00 GFR Calculation 103.7 mL/min (90-130) 09/26/25 01:00 Glucose 179 mg/dL (65-115) H 09/26/25 01:00 Calculated Osmolality 295 mOsm/kg (285-295) 09/26/25 01:00 Calcium 9.8 mg/dL (8.5-10.5) 09/26/25 01:00 Magnesium 2.1 mg/dL (1.7-2.3) 09/26/25 01:00 Troponin T Baseline < 6 ng/L (0-10) 09/26/25 01:00 C-React Prot High Sens 0.280 mg/dL (0.0-0.3) 09/26/25 01:00 NT-Pro-B Natriuret Pep < 36 pg/mL (0-125) 09/26/25 01:00 Lipase 18 U/L (13-60) 09/26/25 01:00 TSH 1.57 uIU/mL (0.27-4.20) 09/26/25 01:00 All radiology interpretation(s) finalized by discharge Clincial Decision Support The following clinical decision support tools were used to aid in care of the patient HEART Score -> History: Slightly Suspicous, EKG: Normal, Age: Less than 45 yrs, Risk Factors: 1 or 2 Risk Factors, Troponin: Baseline Trop <16 ng/L. Resulting HEART Score: 1. Discharge Plan Discharge Patient Disposition: Home Clinical Impression: Atypical chest pain, Bronchitis Condition: Stable Prescriptions: New azithromycin 500 mg tablet See Rx Instructions .ROUTE .COMPLEX Qty: 3 0RF Rx Instructions: For 250 mg dose pack: take 500 mg today (day 1), then 250 mg for 4 days (days 2-5) No Action hydroxyzine HCl 25 mg tablet 25 mg PO BID PRN lorazepam 0.5 mg tablet 0.5 mg PO DAILY PRN levocetirizine 5 mg tablet 5 mg PO DAILY sertraline 50 mg tablet 50 mg PO DAILY 30 Days Qty: 30 3RF mirtazapine 15 mg tablet 15 mg PO DAILY Qty: 30 3RF albuterol sulfate [Ventolin HFA] 90 mcg/actuation HFA aerosol inhaler 1 inh inhalation QID Discharge Orders: Discharge ED (Routine); Ordered 09/26/25 Ordered By: Janes Lopes Discharge Diet: Usual diet Discharge Activity: Resume usual activity Patient Instructions: Opioid Safety, Pain Management, Patient Portal & De Instructions Activity Restrictions/Additional Instructions: You were seen for your chest pain, your evaluated with a chest x-ray, EKG and laboratory studies were reassuring in setting of your mitral valve prolapse. The only abnormality you had was a slightly elevated white blood cell count and a small infiltrate on your chest x-ray of the right side, and with your history of asthma, you will be given a watch and wait antibiotics for if you develop a worsening cough, pain with breathing, shortness of breath, fevers over the next 24 to 48 hours, if you do, start taking the azithromycin, 500 mg on the first day followed by 250 mg the next 4 days. Make a follow-up appointment with your primary care physician in a week's time for reevaluation of your symptoms and overall chest pain. Return to the ED with severe worsening of the pain, breathing difficulties, fevers that do not improve with Tylenol, difficulties breathing, any other emergent concerns. 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
[2025-09-26 01:28] LABS: Hematocrit 42.4 % (36-47); Hemoglobin 13.80 g/dL (11.27-16.99); Mean Corpuscular HGB Conc 32.5 g/dL (30-55); Mean Corpuscular Hemoglobin 28.3 pg (27-33); Mean Corpuscular Volume 86.9 fl (85-98); Nucleated Red Blood Cells % 0 %; Platelet Count 394 10^3/cmm (157-399); Red Blood Count 4.88 10^6/uL (3.85-5.65); White Blood Count 11.99 10^3/uL (3.29-11.43)
[2025-09-26 01:30] VITALS: BP 109/89; PULSE 80; O2SAT 100
[2025-09-26 01:33] LABS: Troponin(5th) Baseline < 6 ng/L (0-10)
[2025-09-26 01:40] LABS: Anion Gap 16.4 (5-19); Blood Urea Nitrogen 14 mg/dL (6-20); Calcium 9.8 mg/dL (8.5-10.5); Carbon Dioxide 23 mmol/L (22-29); Chloride 105 mmol/L (98-107); Glucose 179 mg/dL (65-115); Lipase 18 U/L (13-60); Magnesium 2.1 mg/dL (1.7-2.3); NT Pro B Type Natriuretic Pept < 36 pg/mL (0-125); Osmolality Calculated 295 mOsm/kg (285-295); Potassium 4.4 mmol/L (3.5-5.1); Sodium 140 mmol/L (136-145); Thyroid Stimulating Hormone 1.57 uIU/mL (0.27-4.20)
[2025-09-26 01:57] LABS: CRP High Sensitivity Cardiac 0.280 mg/dL (0.0-0.3)
[2025-09-26 02:07] VITALS: BP 107/69; PULSE 75; O2SAT 99
== END 2025-09-26 02:16 | disposition home or self-care (01) ==
PROVIDERS: Emergency Provider Student in an Organized Health Care Education/Training Program
DX: R07.89 Other chest pain (principal); J40 Bronchitis, not specified as acute or chronic; F17.290 Nicotine dependence, other tobacco product, uncomplicated
CPT/HCPCS: 36415; 71045; 80048; 83690; 83735; 83880; 84443; 84484; 85025; 86141; 93005; 99285